=== PATIENT | female | born 1960 | race Caucasian/White ===

== ENCOUNTER 2016-12-16 15:37 | Outpatient (CLI) | payer OTHER ==
--- NOTE | 2016-12-16 17:02 | DIAGNOSTIC IMAGING REPORT ---
PROCEDURE: MG BILATERAL SCREENING W/CAD INDICATION: SCREENING TECHNIQUE: Bilateral CC and MLO digital views. COMPARISON: Compared to 11/27/2015, 12/01/2015, and 11/23/2014. FINDINGS: Computer-aided detection applied. Moderately dense and mildly nodular. There is a surgical micro clip in the retroareolar region of the left breast. No change. IMPRESSION: 1. Negative mammogram RESULT CODE: 1- Negative. A. A negative report should not delay biopsy if a dominant or clinically suspicious mass is present. 10-15% of cancers are not identified by x-ray. B. A negative report may reinforce clinical impression. C. Adenosis and dense breasts may obscure an underlying neoplasm. D. False positive reports average 6-10%. E.. A yearly screening mammogram is recommended. A reminder letter will be scheduled.
== END 2016-12-16 23:00 ==
LOC: MAM SRH 15:37
DX: Z12.31 Encounter for screening mammogram for malignant neoplasm of breast (principal)

== ENCOUNTER 2016-12-25 12:25 | Outpatient (CLI) | payer OTHER ==
--- NOTE | 2016-12-25 13:11 | DIAGNOSTIC IMAGING REPORT ---
PROCEDURE: XR KNEE 3 VIEWS - LEFT INDICATION: Fall injury, initial encounter TECHNIQUE: Three views. COMPARISON: Left knee x-ray 04/10/2016 FINDINGS: Small spurs of the medial and patellofemoral compartments. No fracture. There is small suprapatellar effusion. IMPRESSION: 1. Mild degenerative changes 2. Small effusion which may indicate internal derangement.
== END 2016-12-25 23:00 ==
LOC: XR SRH 12:25
DX: M17.12 Unilateral primary osteoarthritis, left knee (principal); M25.462 Effusion, left knee

== ENCOUNTER 2017-01-01 17:51 | Emergency (ER) | payer OTHER ==
--- NOTE | 2017-01-01 19:53 | DIAGNOSTIC IMAGING REPORT ---
PROCEDURE: XR CHEST 2 VIEW INDICATION: COUGH TECHNIQUE: PA and lateral views. COMPARISON: Compared to chest x-ray on 11/22/2015. FINDINGS: Lungs are clear. Heart and mediastinum are normal. Thorax is normal. IMPRESSION: 1. Negative chest.
--- NOTE | 2017-01-01 20:07 | ED NURSING NOTES ---
Clinical Report - Nurses [facility] [address] [place] [address] 01/01/2017 17:51 Patient: ESTHER TYLER TRIAGE Triage time 1758 PM. Acuity: LEVEL 5. Chief Complaint: COUGH and RUNNY NOSE. Alert. SEPSIS SCREEN: Sepsis Screen. Negative (no infection suspected/documented). --18:09 Sally Helm R.N. 17:58 01/01/17. BP: 127/68. HR: 82. RR: 18. O2 saturation: 96%. Temp: 98.3 F (oral). Pain level now: 03/26. --18:09 Sally Helm R.N. Weight: 97 kg stated. Height/Length: 64 inches. BMI: 36.7. --18:00 Sally Helm R.N. Medications BuPROPion HBr Oral 300 mg, daily. Estradiol Oral 1 mg, daily. Omeprazole Oral 40 mg, daily. --18:01 Sally Helm R.N. Pramipexole Dihydrochloride Oral 0.5 mg, daily. --18:01 Sally Helm R.N. Allergies Penicillin. Shellfish-derived Products. Walnuts. Watermelon. --18:01 Sally Helm R.N. Medication/allergy information source: the patient. --18:09 Sally Helm R.N. History Arrived by private vehicle. Historian: patient. Primary physician (Dr. Vargas). ( Pt states since last week Friday has been feeling sick, sinus pain, coughing productive clear, pain on the right side, watery eyes no fevers. Has been nauseous. Unable to get appointment with Dr here to get evaluated). Onset. (1 weeks). She has had a nasal discharge, a headache and sinus pain. No chills or difficulty breathing. She has not had fatigue. Denies muscle aches. 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 PAST MEDICAL HX: Immunizations: up-to-date. SOCIAL HX: Former smoker. Alcohol use; consumes beer occasionally. No drug use. No infectious disease exposure. ABUSE ASSESSMENT: No report of abuse. SELF HARM ASSESSMENT: A self harm assessment was performed. The patient answered "no" to the question "Do you have thoughts of harming or killing yourself?" and "Have you recently had thoughts about harming or killing others?". FALL RISK ASSESSMENT: Fall risk assessment completed. No fall risk identified. NUTRITIONAL RISK ASSESSMENT: The nutritional risk assessment revealed no deficiencies. FUNCTIONAL ASSESSMENT: Functional assessment: no impairments noted. LEARNING NEEDS ASSESSMENT: The learning needs assessment revealed no barriers. SKIN INTEGRITY ASSESSMENT: Skin integrity risk assessment completed. No skin integrity risk identified. --18:09 Sally Helm R.N. PROBLEMS: Skin Avulsion. Contusion. Eye Injury. Vomiting. COPD - Chronic Obstructive Pulmonary Disease. Fractured Phalanx (Finger). Dyspnea. Allergic Reaction. Headache. Dysphagia. URI. Laceration. Last Tetanus. TMJ Syndrome. Crush Injury, Upper Extremity. Acute Pain. Conjunctivitis. Immunizations. Dental Caries. Dental Pain. Myofascial Strain. Sprain. Wears Contacts. Corneal Abrasion. LNMP - Last Normal Menstrual Period. Head Injury. Fall. Tetanus Status. Ovarian Cyst. Anxiety Reaction. Restless Legs Syndrome. Depression. Gastroesophageal Reflux Disease. --18:01 Sally Helm R.N. ADDITIONAL SURGERIES: Hysterectomy. Oophorectomy. --18:01 Sally Helm R.N. Interventions ID band on patient. --18:09 Sally Helm R.N. PHYSICAL ASSESSMENT Ambulatory to room. GENERAL / NEURO / PSYCH: Alert. Oriented X 4. Appears in no acute distress. HEENT: Sinus tenderness present. Runny nose. Voice within normal limits. Mucous membranes are pink. RESPIRATORY: Respirations not labored. SKIN: Skin is warm and dry. Normal skin turgor. --18:10 Sally Helm R.N. NURSING PROGRESS NOTES The initial plan of care for this patient has been created This plan of care was discussed with the patient. Patient gowned. Warming measures: blanket applied. Reassurance given. Two patient identifiers checked. Call light placed in reach. Bed placed in lowest position. Brakes of bed on. --18:11 Sally Helm R.N. 19:10 Water to patient per request. --19:12 Felisha Flores, ER Tech1 20:00 01/01/17. BP: 120/63. HR: 76. RR: 16. O2 saturation: 99%. Pain level now: 2. --20:02 Sally Helm R.N. Reassurance given. The patient is calm and resting quietly. Overall patient status is the same- she states feels the same. RESPIRATORY: The patient reports cough. Call light placed in reach. Side rails up x 2. Bed placed in lowest position. Brakes of bed on. Patient waiting for radiology results. --20:02 Sally Helm R.N. 20:22 01/01/2017 Bactrim DS (Sulfamethoxazole-TMP DS) PO Tablets 1 tab given. Allergies verified and confirmed 5 rights. --20:22 Sally Helm R.N. DISPOSITION / DISCHARGE Departure time: 2021. Condition at departure: unchanged and stable. The goals identified in the patient's plan of care were met. No learning barriers present. Discharge instructions provided and reviewed with the patient. Reviewed medication(s) side effects, precautions, dosing and course information. Prescription(s) given to the patient. Patient verbalized understanding. Written instructions provided in Haitian. The patient was discharged by the nurse practitioner. She was discharged home and accompanied by spouse. She left the Emergency Department ambulatory and via private vehicle. Spouse driving. FALL RISK ASSESSMENT: Fall risk assessment completed. No fall risk identified. --20:25 Sally Helm R.N. 20:16 01/01/17. BP: 212/63 (regular adult cuff) taken on the left arm, via an automated monitor, while sitting. HR: 78. RR: 16. O2 saturation: 98% on room air. Temp: 98.8 F (oral). Pain level now: 010. --20:25 Sally Helm R.N. Locked/Released at 01/01/2017 20:25 by Sally Helm R.N.
--- NOTE | 2017-01-01 20:07 | ED NURSING NOTES ---
Clinical Report - Nurses [facility] [address] [place] [address] 01/01/2017 17:51 Patient: ESTHER TYLER TRIAGE Triage time 1758 PM. Acuity: LEVEL 5. Chief Complaint: COUGH and RUNNY NOSE. Alert. SEPSIS SCREEN: Sepsis Screen. Negative (no infection suspected/documented). --18:09 Sally Helm R.N. 17:58 01/01/17. BP: 127/68. HR: 82. RR: 18. O2 saturation: 96%. Temp: 98.3 F (oral). Pain level now: 03/26. --18:09 Sally Helm R.N. Weight: 97 kg stated. Height/Length: 64 inches. BMI: 36.7. --18:00 Sally Helm R.N. Medications BuPROPion HBr Oral 300 mg, daily. Estradiol Oral 1 mg, daily. Omeprazole Oral 40 mg, daily. --18:01 Sally Helm R.N. Pramipexole Dihydrochloride Oral 0.5 mg, daily. --18:01 Sally Helm R.N. Allergies Penicillin. Shellfish-derived Products. Walnuts. Watermelon. --18:01 Sally Helm R.N. Medication/allergy information source: the patient. --18:09 Sally Helm R.N. History Arrived by private vehicle. Historian: patient. Primary physician (Dr. Vargas). ( Pt states since last week Friday has been feeling sick, sinus pain, coughing productive clear, pain on the right side, watery eyes no fevers. Has been nauseous. Unable to get appointment with Dr here to get evaluated). Onset. (1 weeks). She has had a nasal discharge, a headache and sinus pain. No chills or difficulty breathing. She has not had fatigue. Denies muscle aches. 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 PAST MEDICAL HX: Immunizations: up-to-date. SOCIAL HX: Former smoker. Alcohol use; consumes beer occasionally. No drug use. No infectious disease exposure. ABUSE ASSESSMENT: No report of abuse. SELF HARM ASSESSMENT: A self harm assessment was performed. The patient answered "no" to the question "Do you have thoughts of harming or killing yourself?" and "Have you recently had thoughts about harming or killing others?". FALL RISK ASSESSMENT: Fall risk assessment completed. No fall risk identified. NUTRITIONAL RISK ASSESSMENT: The nutritional risk assessment revealed no deficiencies. FUNCTIONAL ASSESSMENT: Functional assessment: no impairments noted. LEARNING NEEDS ASSESSMENT: The learning needs assessment revealed no barriers. SKIN INTEGRITY ASSESSMENT: Skin integrity risk assessment completed. No skin integrity risk identified. --18:09 Sally Helm R.N. PROBLEMS: Skin Avulsion. Contusion. Eye Injury. Vomiting. COPD - Chronic Obstructive Pulmonary Disease. Fractured Phalanx (Finger). Dyspnea. Allergic Reaction. Headache. Dysphagia. URI. Laceration. Last Tetanus. TMJ Syndrome. Crush Injury, Upper Extremity. Acute Pain. Conjunctivitis. Immunizations. Dental Caries. Dental Pain. Myofascial Strain. Sprain. Wears Contacts. Corneal Abrasion. LNMP - Last Normal Menstrual Period. Head Injury. Fall. Tetanus Status. Ovarian Cyst. Anxiety Reaction. Restless Legs Syndrome. Depression. Gastroesophageal Reflux Disease. --18:01 Sally Helm R.N. ADDITIONAL SURGERIES: Hysterectomy. Oophorectomy. --18:01 Sally Helm R.N. Interventions ID band on patient. --18:09 Sally Helm R.N. PHYSICAL ASSESSMENT Ambulatory to room. GENERAL / NEURO / PSYCH: Alert. Oriented X 4. Appears in no acute distress. HEENT: Sinus tenderness present. Runny nose. Voice within normal limits. Mucous membranes are pink. RESPIRATORY: Respirations not labored. SKIN: Skin is warm and dry. Normal skin turgor. --18:10 Sally Helm R.N. NURSING PROGRESS NOTES The initial plan of care for this patient has been created This plan of care was discussed with the patient. Patient gowned. Warming measures: blanket applied. Reassurance given. Two patient identifiers checked. Call light placed in reach. Bed placed in lowest position. Brakes of bed on. --18:11 Sally Helm R.N. 19:10 Water to patient per request. --19:12 Felisha Flores, ER Tech1 20:00 01/01/17. BP: 120/63. HR: 76. RR: 16. O2 saturation: 99%. Pain level now: 2. --20:02 Sally Helm R.N. Reassurance given. The patient is calm and resting quietly. Overall patient status is the same- she states feels the same. RESPIRATORY: The patient reports cough. Call light placed in reach. Side rails up x 2. Bed placed in lowest position. Brakes of bed on. Patient waiting for radiology results. --20:02 Sally Helm R.N. 20:22 01/01/2017 Bactrim DS (Sulfamethoxazole-TMP DS) PO Tablets 1 tab given. Allergies verified and confirmed 5 rights. --20:22 Sally Helm R.N. DISPOSITION / DISCHARGE Departure time: 2021. Condition at departure: unchanged and stable. The goals identified in the patient's plan of care were met. No learning barriers present. Discharge instructions provided and reviewed with the patient. Reviewed medication(s) side effects, precautions, dosing and course information. Prescription(s) given to the patient. Patient verbalized understanding. Written instructions provided in [place] Citizen. The patient was discharged by the nurse practitioner. She was discharged home and accompanied by spouse. She left the Emergency Department ambulatory and via private vehicle. Spouse driving. FALL RISK ASSESSMENT: Fall risk assessment completed. No fall risk identified. --20:25 Sally Helm R.N. 20:16 01/01/17. BP: 212/63 (regular adult cuff) taken on the left arm, via an automated monitor, while sitting. HR: 78. RR: 16. O2 saturation: 98% on room air. Temp: 98.8 F (oral). Pain level now: 010. --20:25 Sally Helm R.N. Locked/Released at 01/01/2017 20:25 by Sally Helm R.N.
--- NOTE | 2017-01-01 20:07 | ED ORDER SUMMARY ---
..... Patient: ESTHER TYLER OrderSheet [facility] VisitID: [id number] [address] [place] [address] 56y, F Registration Date/Time: 01/01/2017 ORDER SHEET Weight: 97.0 kg (stated) Allergies: Penicillin, Shellfish-derived Products, Walnuts, Watermelon GENERAL ORDERS: Chest 2V Urgent (18:16 01/01/2017 HBivens A.R.N.P.) (Ack 18:18 LNations ER Tech1) (18:24 MCampbell) MEDICATION ORDERS: Bactrim DS PO (Tablet 800-160 mg) 1 tab (NOW) (20:21 01/01/2017 EHwin R.N. verbal order read back to HBivens A.R.N.P.) (20:22 EHassan R.N.) IV FLUIDS: ORDER SHEET NOTES: [Electronically signed by Sally Helm R.N. (20:25 01/01/2017)] [Electronically signed by Vania ZarateR.N.POsorio (21:49 01/01/2017)] [Electronically locked/signed by Sally Helm R.N. (20:25 01/01/2017)]
--- NOTE | 2017-01-01 20:07 | ED CLINICAL REPORT ---
Clinical Report - Physicians/Mid Levels [facility] [address] [place] [address] 01/01/2017 17:51 Patient: ESTHER TYLER Time Seen: 18:03; initial patient contact, initial documentation, patient care assumed. Arrived- By private vehicle. Historian- patient. HISTORY OF PRESENT ILLNESS Chief Complaint: COUGH and SINUS PAIN. This started about 1 weeks ago and is still present. The illness is described as moderate. The patient has had a cough, nasal congestion, sinus pressure, sinus drainage and a nasal discharge. No sputum production, difficulty breathing, fever, muscle aches or sore throat. No ear pain. Additional history - No known contact with a sick individual. No recent travel. Similar symptoms previously: Occasionally, worse. Recent medical care: Not recently seen/assessed. REVIEW OF SYSTEMS The patient has had a headache. No vomiting or diarrhea. All systems otherwise negative, except as recorded above. PAST HISTORY See nurses notes. PROBLEMS: Skin Avulsion. Contusion. Eye Injury. Vomiting. COPD - Chronic Obstructive Pulmonary Disease. Fractured Phalanx (Finger). Dyspnea. Allergic Reaction. Headache. Dysphagia. URI. Laceration. Last Tetanus. TMJ Syndrome. Crush Injury, Upper Extremity. Acute Pain. Conjunctivitis. Immunizations. Dental Caries. Dental Pain. Myofascial Strain. Sprain. Wears Contacts. Corneal Abrasion. LNMP - Last Normal Menstrual Period. Head Injury. Fall. Tetanus Status. Ovarian Cyst. Anxiety Reaction. Restless Legs Syndrome. Depression. Gastroesophageal Reflux Disease. --18:01 Sally Helm ROsorioN. ADDITIONAL SURGERIES: Hysterectomy. Oophorectomy. --18:01 Sally Helm R.N. SOCIAL HISTORY Former smoker. Occasional alcohol use. Not exposed to second-hand smoke at home. No drug use. No recent travel. Is a local resident. FAMILY HISTORY Negative. ADDITIONAL NOTES The nursing notes have been reviewed with agreement regarding the chief complaint, HPI, ROS, PMH and patient medications and allergies. PHYSICAL EXAM Vital Signs: 01/01/2017 17:58 BP: 127/68. HR: 82. RR: 18. O2 saturation: 96%. Temp: 98.3 F. Pain level now: 03/26. Have been reviewed as normal and appear to be correct. Appearance: Alert. No acute distress. Head: Tenderness present to percussion/palpation of the sinuses: mild right and left frontal tenderness, maxillary tenderness. Eyes: Pupils equal, round and reactive to light. Eyes normal inspection. ENT: Ears normal. Nose abnormal. Pharynx normal. Uvula midline. Neck: Normal inspection. Neck supple. CVS: Normal heart rate and rhythm. Heart sounds normal. Pulses normal. Respiratory: No respiratory distress. Breath sounds normal. Abdomen: Mildly obese. Back: Normal inspection. Skin: Skin warm and dry. Normal skin color. No rash. Normal skin turgor. Extremities: Extremities exhibit normal ROM. No lower extremity edema. Neuro: Oriented X 3. No motor deficit. No sensory deficit. LABS, X-RAYS, AND EKG Chest X-ray: Normal Chest X-Ray. (IMPRESSION: 1. Negative chest. Electronically Final signed by:Paco Sapp MD 01/01/2017 7:50:59 PM). The X-rays were interpreted by the radiologist and contemporaneously by me. Interpretation time: 19:57. 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 Patient and spouse counseled in person regarding the patient's stable condition and diagnosis. 1999. Differential Diagnosis: Other possible considerations: copd exac, pneumonia, bronchitis, flu, uri, viral illness, sinusitis. Above considerations are based on history and physical exam. Differential diagnosis was discussed with patient and patient's spouse. Disposition: Discharged home in good and unchanged condition (20:07). Condition: good and stable. CLINICAL IMPRESSION Acute maxillary, ethmoidal and frontal sinusitis INSTRUCTIONS Alternate Tylenol (Acetaminophen) and Motrin (Ibuprofen) for fever, temperature greater than 101 degrees orally. Take according to label instructions. Drink plenty of fluids for the next 24 hours. Warnings: GENERAL WARNINGS: Return or contact your physician immediately if your condition worsens or changes unexpectedly, if not improving as expected, or if other problems arise. Specifically return if problem worsens. Prescription Medications: Nasacort nasal spray: 2 sprays in each nostril once daily as needed for allergies. Dispense one (1) unit. No refills. Substitution is permissible. Bactrim DS 800 mg / 160 mg: take 1 tablet orally every 12 hours for 10 days. No refill. Tessalon Perles 100 mg: Take 1 orally every 8 hours as needed for cough. Dispense twenty (20). No refills. Substitution is permissible. Follow-up: Follow up with your doctor in about five days even if well. Call for an appointment. Summary of care provided to patient. Understanding of the discharge instructions verbalized by patient. (Electronically signed by Vania Zarate A.R.N.P. 01/01/2017 21:49)
--- NOTE | 2017-01-01 20:07 | ED ORDER SUMMARY ---
..... Patient: ESTHER TYLER OrderSheet [facility] VisitID: [id number] [address] [place] [address] 56y, F Registration Date/Time: 01/01/2017 ORDER SHEET Weight: 97.0 kg (stated) Allergies: Penicillin, Shellfish-derived Products, Walnuts, Watermelon GENERAL ORDERS: Chest 2V Urgent (18:16 01/01/2017 HBivens A.R.N.P.) (Ack 18:18 LNations ER Tech1) (18:24 MCampbell) MEDICATION ORDERS: Bactrim DS PO (Tablet 800-160 mg) 1 tab (NOW) (20:21 01/01/2017 EHwin R.N. verbal order read back to HBivens A.R.N.P.) (20:22 EHassan R.N.) IV FLUIDS: ORDER SHEET NOTES: [Electronically signed by Sally Helm R.N. (20:25 01/01/2017)] [Electronically signed by Vania ZarateR.N.POsorio (21:49 01/01/2017)] [Electronically locked/signed by Sally Helm R.N. (20:25 01/01/2017)]
--- NOTE | 2017-01-01 21:49 | ED MAR SUMMARY ---
..... Medication Administration Record [facility] [address] [place] [address] Patient: ESTHER TYLER Visit ID: [id number] 56y, F Weight: 97.0 kg Height/Length: 64 in BMI: 36.7 ALLERGIES: Penicillin, Shellfish-derived Products, Walnuts, Watermelon Given 20:22 01/01/2017 Sally Helm ROsorioNOsorio Medication Administered: BACTRIM DS [PO] (SULFAMETHOXAZOLE-TMP DS), Dose: 1 tab Tablets PO. Medication Ordered: Bactrim DS PO (Tablet 800-160 mg) 1 tab (NOW).
--- NOTE | 2017-01-01 21:49 | ED DISCHARGE INSTRUCTIONS ---
Patient: ESTHER TYLER General Instructions [facility] VisitID: [id number] [address] [place] [address] 56y, F Registration Date/Time: 01/01/2017 Acute maxillary, ethmoidal and frontal sinusitis INSTRUCTIONS Alternate Tylenol (Acetaminophen) and Motrin (Ibuprofen) for fever, temperature greater than 101 degrees orally. Take according to label instructions. Drink plenty of fluids for the next 24 hours. Warnings: GENERAL WARNINGS: Return or contact your physician immediately if your condition worsens or changes unexpectedly, if not improving as expected, or if other problems arise. Specifically return if problem worsens. Prescription Medications: Nasacort nasal spray: 2 sprays in each nostril once daily as needed for allergies. Dispense one (1) unit. No refills. Substitution is permissible. Bactrim DS 800 mg / 160 mg: take 1 tablet orally every 12 hours for 10 days. No refill. Tessalon Perles 100 mg: Take 1 orally every 8 hours as needed for cough. Dispense twenty (20). No refills. Substitution is permissible. Follow-up: Follow up with your doctor in about five days even if well. Call for an appointment. Summary of care provided to patient. Understanding of the discharge instructions verbalized by patient. ADDITIONAL INFORMATION Sinusitis [Abx Tx] The sinuses are air-filled spaces within the bones of the face. They connect to the inside of the nose. Sinusitis is an inflammation of the tissue lining the sinus cavity. Sinus inflammation can occur during a cold or hay-fever (allergies to pollens and other particles in the air) and cause symptoms of sinus congestion and fullness. A sinus infection causes fever, headache and facial pain. There is usually green or yellow drainage from the nose or into the back of the throat (post-nasal drip). Antibiotics are prescribed to treat this condition. Home Care: Drink plenty of water, hot tea, and other liquids to stay well hydrated. This thins the mucus and promotes sinus drainage. Apply heat to the painful areas of the face. Use a towel soaked in hot water. Or, welding machine operator electroslag the shower and direct the hot spray onto your face. This is a good way to inhale warm water vapor and get heat on your face at the same time. (Cover your mouth and nose with your hands so you can still breathe as you do this.) Use a vaporizer with products such as Vicks VapoRub (contains menthol) at night. Suck on peppermint, menthol or eucalyptus hard candies during the day. An expectorant containing guaifenesin (such as Robitussin), helps to thin the mucus and promote drainage from the sinuses. Plsq-jxq-htesobc decongestants may be used unless a similar medicine was prescribed. Nasal sprays work the fastest. Use one that contains phenylephrine (Grupo-synephrine, Sinex and others) or oxymetazoline (Afrin). First blow the nose gently to remove mucus, then apply the drops. Do not use these medicines more often than directed on the label or for more than three days or symptoms may worsen. You may also use tablets containing pseudoephedrine (Sudafed). Many sinus remedies combine ingredients, which may increase side effects. Read the labels or ask the pharmacist for help. NOTE: Persons with high blood pressure should not use decongestants. They can raise blood pressure. Antihistamines are useful if allergies are a cause of your sinusitis. The mildest one is chlorpheniramine (available without a prescription). The dose for adults is 8-12mg three times a day. [NOTE: Do not use chlorpheniramine if you have glaucoma or if you are a man with trouble urinating due to an enlarged prostate.] Claritin (loratidine) is an antihistamine that causes less drowsiness and is a good alternative for daytime use. Do not use nasal rinses or irrigation during an acute sinus infection, unless advised by your doctor. Rinsing may spread the infection to other sinuses. You may use acetaminophen (Tylenol) or ibuprofen (Motrin, Advil) to control pain, unless another pain medicine was prescribed. [ NOTE: If you have chronic liver or kidney disease or ever had a stomach ulcer, talk with your doctor before using these medicines.] (Aspirin should never be used in anyone under 18 years of age who is ill with a fever. It may cause severe liver damage.) Finish the full course, even if you are feeling better after a few days. Follow Up with your doctor or this facility in one week or as instructed by our staff if not improving. Get Prompt Medical Attention if any of the following occur: Facial pain or headache becomes more severe Stiff neck Unusual drowsiness or confusion, or not acting like your normal self Swelling of the forehead or eyelids Vision problems including blurred or double vision Fever of 100.4F (38C) or higher, or as directed by your healthcare provider Seizure Fever Control (Adult) A fever is a natural reaction of the body to an illness. In most cases, the temperature itself is not harmful. It actually helps the body fight infections. A fever does not need to be treated unless you feel very uncomfortable. Home Care If you feel warm, check your temperature. If you feel very uncomfortable and your temperature is at or higher than 100.4F (38C) oral, you may take acetaminophen (Tylenol) every 4 to 6 hours. If you cant take or keep down oral medicine, ask your pharmacist for Tylenol suppositories, which you can get without a prescription. If the fever does not respond to acetaminophen within 1 hour, take ibuprofen (Advil or Motrin). If this works, keep taking the ibuprofen every 6 to 8 hours. Note: If you have chronic liver or kidney disease or ever had a stomach ulcer or GI bleeding, talk with your doctor before using these medications. If either medication alone does not keep the fever down, you may alternate the two medicines every 3 to 4 hours, only if your healthcare provider has instructed you to do so. For example, take Motrin then wait 3 hours, take Tylenol then wait 3 hours, take Motrin, and so on. Follow your healthcare providers instructions exactly. Clothing: Keep clothing light because excess body heat is lost through the skin. The fever will go up if you wear extra layers or wrap in blankets. Fluids: Fever causes the body to lose water through evaporation. Drink plenty of fluids such as water, juice, clear sodas, artemio david, or lemonade. Do not use aspirin in anyone under 18 years of age who is ill with a fever. It can cause severe liver damage. Follow Up with your doctor or as advised by our staff if you do not get better after 48 hours. Get Prompt Medical Attention if any of the following occur: Fever does not get better after taking fever medication Fast or difficult breathing Earache, sinus pain, stiff or painful neck, headache, repeated diarrhea or vomiting You feel unusually irritable, drowsy, or confused A rash appears You feel weak or dizzy, or that you might faint Triamcinolone Acetonide Nasal spray What is this medicine? TRIAMCINOLONE (trye am SIN oh lone) nasal spray is a corticosteroid. It is used to treat the nasal symptoms of seasonal and year round allergies. How should I use this medicine? This medicine is for use in the nose. Follow the directions on your prescription label. This medicine works best if used regularly. Do not use more often than directed. Make sure that you are using your nasal spray correctly. Ask you doctor or health care provider if you have any questions. Talk to your pv installer tech regarding the use of this medicine in children. While this drug may be prescribed for children as young as 2 years of age for selected conditions, precautions do apply. What side effects may I notice from receiving this medicine? Side effects that you should report to your doctor or health post acute care nurse practitioner as soon as possible: allergic reactions like skin rash, itching or hives, swelling of the face, lips, or tongue change in vision dizziness infection nosebleed, burning in the nose trouble breathing, wheezing unusual bruising white patches or sores in the nose Side effects that usually do not require medical attention (report to your doctor or health post acute care nurse practitioner if they continue or are bothersome): congestion cough headache nausea runny nose sneezing What may interact with this medicine? Interactions are not expected. What if I miss a dose? If you miss a dose, take it as soon as you can. If it is almost time for your next dose, take only that dose. Do not take double or extra doses. Where should I keep my medicine? Keep out of the reach of children. Store at room temperature between 20 and 25 degrees C (68 and 77 degrees F). Throw away the canister after 120 sprays or after the expiration date, whichever comes first. What should I tell my health care provider before I take this medicine? They need to know if you have any of these conditions: infection, like tuberculosis, herpes, or fungal infection recent surgery or injury of nose or sinuses taking corticosteroids by mouth an unusual or allergic reaction to triamcinolone, corticosteroids, other medicines, foods, dyes, or preservatives or trying to get breast-feeding What should I watch for while using this medicine? Check with your doctor or health post acute care nurse practitioner if your symptoms do not improve in 1 week of regular use or if they get worse. Do not come in contact with people who have chickenpox or the measles while you are taking this medicine. If you do, call your doctor right away. Sulfamethoxazole, Trimethoprim Oral tablet What is this medicine? SULFAMETHOXAZOLE; TRIMETHOPRIM or SMX-TMP (suhl fuh meth OK guerda zohl; trye METH oh prim) is a combination of a sulfonamide antibiotic and a second antibiotic, trimethoprim. It is used to treat or prevent certain kinds of bacterial infections. It will not work for colds, flu, or other viral infections. How should I use this medicine? Take this medicine by mouth with a full glass of water. Follow the directions on the prescription label. Take your medicine at regular intervals. Do not take it more often than directed. Do not skip doses or stop your medicine early. Talk to your pv installer tech regarding the use of this medicine in children. Special care may be needed. This medicine has been used in children as young as 2 months of age. What side effects may I notice from receiving this medicine? Side effects that you should report to your doctor or health post acute care nurse practitioner as soon as possible: allergic reactions like skin rash or hives, swelling of the face, lips, or tongue breathing problems fever or chills, sore throat irregular heartbeat, chest pain joint or muscle pain pain or difficulty passing urine red pinpoint spots on skin redness, blistering, peeling or loosening of the skin, including inside the mouth unusual bleeding or bruising unusually weak or tired yellowing of the eyes or skin Side effects that usually do not require medical attention (report to your doctor or health post acute care nurse practitioner if they continue or are bothersome): diarrhea dizziness headache loss of appetite nausea, vomiting nervousness What may interact with this medicine? Do not take this medicine with any of the following medications: aminobenzoate potassium dofetilide metronidazole This medicine may also interact with the following medications: JANE inhibitors like benazepril, enalapril, lisinopril, and ramipril cyclosporine digoxin diuretics indomethacin medicines for diabetes methenamine methotrexate phenytoin potassium supplements pyrimethamine sulfinpyrazone tricyclic antidepressants warfarin What if I miss a dose? If you miss a dose, take it as soon as you can. If it is almost time for your next dose, take only that dose. Do not take double or extra doses. Where should I keep my medicine? Keep out of the reach of children. Store at room temperature between 20 to 25 degrees C (68 to 77 degrees F). Protect from light. Throw away any unused medicine after the expiration date. What should I tell my health care provider before I take this medicine? They need to know if you have any of these conditions: anemia asthma being treated with anticonvulsants if you frequently drink alcohol containing drinks kidney disease liver disease low level of folic acid or qsrxaob-[id number]-pyvwhhvsc dehydrogenase poor nutrition or malabsorption porphyria severe allergies thyroid disorder an unusual or allergic reaction to sulfamethoxazole, trimethoprim, sulfa drugs, other medicines, foods, dyes, or preservatives or trying to get breast-feeding What should I watch for while using this medicine? Tell your doctor or health post acute care nurse practitioner if your symptoms do not improve. Drink several glasses of water a day to reduce the risk of kidney problems. Do not treat diarrhea with over the counter products. Contact your doctor if you have diarrhea that lasts more than 2 days or if it is severe and watery. This medicine can make you more sensitive to the sun. Keep out of the sun. If you cannot avoid being in the sun, wear protective clothing and use a sunscreen. Do not use sun lamps or tanning beds/booths. Benzonatate Oral capsule, liquid filled What is this medicine? BENZONATATE (dafne GENEVIEVE na bahena) is used to treat cough. How should I use this medicine? Take this medicine by mouth with a glass of water. Follow the directions on the prescription label. Avoid breaking, chewing, or sucking the capsule, as this can cause serious side effects. Take your medicine at regular intervals. Do not take your medicine more often than directed. Talk to your pv installer tech regarding the use of this medicine in children. While this drug may be prescribed for children as young as 10 years old for selected conditions, precautions do apply. What side effects may I notice from receiving this medicine? Side effects that you should report to your doctor or health post acute care nurse practitioner as soon as possible: allergic reactions like skin rash, itching or hives, swelling of the face, lips, or tongue breathing problems chest pain confusion or hallucinations irregular heartbeat numbness of mouth or throat seizures Side effects that usually do not require medical attention (report to your doctor or health post acute care nurse practitioner if they continue or are bothersome): burning feeling in the eyes constipation headache nasal congestion stomach upset What may interact with this medicine? Do not take this medicine with any of the following medications: MAOIs like Carbex, Eldepryl, Marplan, Nardil, and Parnate What if I miss a dose? If you miss a dose, take it as soon as you can. If it is almost time for your next dose, take only that dose. Do not take double or extra doses. Where should I keep my medicine? Keep out of the reach of children. Store at room temperature between 15 and 30 degrees C (59 and 86 degrees F). Keep tightly closed. Protect from light and moisture. Throw away any unused medicine after the expiration date. What should I tell my health care provider before I take this medicine? They need to know if you have any of these conditions: kidney or liver disease an unusual or allergic reaction to benzonatate, anesthetics, other medicines, foods, dyes, or preservatives or trying to get breast-feeding What should I watch for while using this medicine? Tell your doctor if your symptoms do not improve or if they get worse. If you have a high fever, skin rash, or headache, see your health post acute care nurse practitioner. You may get drowsy or dizzy. Do not drive, use machinery, or do anything that needs mental alertness until you know how this medicine affects you. Do not sit or stand up quickly, especially if you are an older patient. This reduces the risk of dizzy or fainting spells. You have been given the following additional information: Sinusitis, Abx Tx Fever Control (Adult) Triamcinolone Acetonide Nasal spray Sulfamethoxazole, Trimethoprim Oral tablet Benzonatate Oral capsule, liquid filled (Electronically signed by Vania Zarate A.R.N.P. 01/01/2017 21:49)
--- NOTE | 2017-01-01 21:49 | ED MAR SUMMARY ---
..... Medication Administration Record Formerly [facility] [address] [place] [address] Patient: ESTHER TYLER Visit ID: [id number] 56y, F Weight: 97.0 kg Height/Length: 64 in BMI: 36.7 ALLERGIES: Penicillin, Shellfish-derived Products, Walnuts, Watermelon Given 20:22 01/01/2017 Sally Helm ROsorioNOsorio Medication Administered: BACTRIM DS [PO] (SULFAMETHOXAZOLE-TMP DS), Dose: 1 tab Tablets PO. Medication Ordered: Bactrim DS PO (Tablet 800-160 mg) 1 tab (NOW).
--- NOTE | 2017-01-01 21:49 | ED MED RECONCILIATION SUMMARY ---
Patient: ESTHER TYLER Medication Reconciliation Report [facility] VisitID: [id number] [address] [place] [address] 56y, F Registration Date/Time: 01/01/2017 Weight: 97.0 kg Height/Length: 64 in. BMI: 36.7 ALLERGIES: Penicillin, Shellfish-derived Products, Walnuts, Watermelon The patient's Home Medications are listed below: THE FOLLOWING MEDICATIONS NEED TO BE RECONCILED: BuPROPion HBr Oral 300 mg, daily Estradiol Oral 1 mg, daily Omeprazole Oral 40 mg, daily Pramipexole Dihydrochloride Oral 0.5 mg, daily The source(s) of the original Home Medication information: patient The following Medications were given to the patient in the Emergency Department: Bactrim DS [PO] PO 1 tab, administered: 01/01/2017 8:22:00 PM The following Medications were prescribed to the patient: Nasacort nasal spray: 2 sprays in each nostril once daily as needed for allergies. Dispense one (1) unit. No refills. Substitution is permissible. -- Vania Zarate, A.R.N.P. Bactrim DS 800 mg / 160 mg: take 1 tablet orally every 12 hours for 10 days. No refill. -- Vania Zarate A.R.N.P. Tessalon Perles 100 mg: Take 1 orally every 8 hours as needed for cough. Dispense twenty (20). No refills. Substitution is permissible. -- Vania Zarate A.R.N.P.
--- NOTE | 2017-01-01 21:49 | ED MED RECONCILIATION SUMMARY ---
Patient: ESTHER TYLER Medication Reconciliation Report [facility] VisitID: [id number] [address] [place] [address] 56y, F Registration Date/Time: 01/01/2017 Weight: 97.0 kg Height/Length: 64 in. BMI: 36.7 ALLERGIES: Penicillin, Shellfish-derived Products, Walnuts, Watermelon The patient's Home Medications are listed below: THE FOLLOWING MEDICATIONS NEED TO BE RECONCILED: BuPROPion HBr Oral 300 mg, daily Estradiol Oral 1 mg, daily Omeprazole Oral 40 mg, daily Pramipexole Dihydrochloride Oral 0.5 mg, daily The source(s) of the original Home Medication information: patient The following Medications were given to the patient in the Emergency Department: Bactrim DS [PO] PO 1 tab, administered: 01/01/2017 8:22:00 PM The following Medications were prescribed to the patient: Nasacort nasal spray: 2 sprays in each nostril once daily as needed for allergies. Dispense one (1) unit. No refills. Substitution is permissible. -- Vania Zarate, A.R.N.P. Bactrim DS 800 mg / 160 mg: take 1 tablet orally every 12 hours for 10 days. No refill. -- Vania Zarate A.R.N.P. Tessalon Perles 100 mg: Take 1 orally every 8 hours as needed for cough. Dispense twenty (20). No refills. Substitution is permissible. -- Vania Zarate A.R.N.P.
== END 2017-01-01 20:25 | disposition home or self-care (01) ==
LOC: ED SRH 17:51
DX: J01.10 Acute frontal sinusitis, unspecified (principal); J01.00 Acute maxillary sinusitis, unspecified; J01.20 Acute ethmoidal sinusitis, unspecified; K21.9 Gastro-esophageal reflux disease without esophagitis; J44.9 Chronic obstructive pulmonary disease, unspecified; Z88.0 Allergy status to penicillin; Z79.899 Other long term (current) drug therapy